=== PATIENT | female | born 1995 | race Hispanic/Latino ===

== ENCOUNTER 2017-10-29 13:52 | Inpatient (IN) | payer OTHER, SELFPAY ==
[2017-10-29] MEDS ORDERED: LR 1,000 ML IV ×6 (16:30→17:59)
[2017-10-29 16:36] LABS: HEMATOCRIT 33.4 % (36.0-47.0); HEMOGLOBIN 10.7 g/dl (12.0-15.5); MEAN CORPUSCULAR HEMOGLOBIN 25.7 pg (27.0-33.0); MEAN CORPUSCULAR VOLUME 80.1 fl (80.0-96.0); PLATELET COUNT, AUTOMATED 275 10^3/uL (150-450); RED BLOOD COUNT 4.17 10^6/uL (4.00-5.40); RED CELL DISTRIBUTION WIDTH 14.8 % (11.5-14.5); WHITE BLOOD COUNT 8.6 10^3/uL (4.0-10.0)
[2017-10-29] MEDS ORDERED: FENTANYL 2MCG/ML ROPIVACAINE 0.2% IN 0.9% NACL 200ML IVBAG As Ordered ×3 (17:35)
[2017-10-29] MEDS ORDERED: ONDANSETRON 4MG/2ML VIAL (J2405) IV ×3 (18:30)
[2017-10-29] MEDS ORDERED: ePHEDrine SULFATE 25 MG/5 ML(5MG/ML) SYRINGE IV ×3 (18:30)
[2017-10-29] MEDS ORDERED: REFRIGERATOR IV KEYS XX ×3 (18:30)
[2017-10-29] MEDS ORDERED: diphenhydrAMINE INJ 50MG/ML VIAL (J1200) IV ×3 (18:30)
[2017-10-29] MEDS ORDERED: LACTATED RINGER'S 1000 ML IV ×3 (18:30)
[2017-10-29] MEDS ORDERED: FENTANYL/ROPIVACAINE/NACL BAG 200 ML EPIDURAL ×3 (18:30)
[2017-10-29] MEDS ORDERED: NALOXONE INJ 0.4 MG/1 ML VIAL (J2310) IV ×3 (18:30)
[2017-10-29] MEDS ORDERED: EPIDURAL/PCA KEYS XX ×3 (18:30)
[2017-10-29] MEDS ORDERED: EPIDURAL COMMENT XX ×3 (18:30)
[2017-10-29 19:22] LABS: APPEARANCE, URINE HAZY (CLEAR); BACTERIA, URINE AUTO NEGATIVE (NEGATIVE); BILIRUBIN, URINE AUTO NEGATIVE (NEGATIVE); BLOOD, URINE BLOOD 2+ (NEGATIVE); COLOR, URINE YELLOW (YELLOW); GLUCOSE, URINE (UA) AUTO NEGATIVE (NEGATIVE); KETONE, URINE AUTO NEGATIVE (NEGATIVE); LEUKOCYTE ESTERASE, URINE AUTO TRACE (NEGATIVE); NITRITE, URINE AUTO NEGATIVE (NEGATIVE); PROTEIN, URINE AUTO NEGATIVE (NEGATIVE); RBC, URINE AUTO 53 /HPF (0-3); SPECIFIC GRAVITY URINE AUTO 1.011 (1.002-1.035); SQUAMOUS EPITHELIAL CELL UR AU 3 /HPF (0-6); UROBILINOGEN, URINE AUTO 0.2 mg/dL (0.0-2.0); WBC, URINE AUTO 10 /HPF (0-3)
[2017-10-29] MEDS ORDERED: OXYTOCIN 30 UNITS IN 0.9% NaCl 500ML IV BAG (J2590) As Ordered ×3 (19:52)
[2017-10-29] MEDS: OXYTOCIN DRIP 30 UNITS in APPROPRIATE DILUENT 1 EA IV ×3 (20:21)
[2017-10-29] MEDS ORDERED: DIBUCAINE 1% OINTMENT 30GM TOP ×3 (20:30)
[2017-10-29] MEDS ORDERED: METHYLERGONOVINE MALEATE 0.2 MG TAB PO ×3 (20:30)
[2017-10-29] MEDS ORDERED: MEASLES,MUMPS,RUBELLA VACCINE INJ (MMR-II) (90707) SC ×3 (20:30)
[2017-10-29] MEDS ORDERED: RHOGAM 300 MCG (1500 IU) INJ (J2790) IM ×3 (20:30)
[2017-10-29] MEDS: AMPICILLIN SOD/SULBACTAM SOD 3 GM in D5W MINI-BAG PLUS 100 ML IV ×3 (21:12)
[2017-10-29] MEDS: IBUPROFEN 800 MG TAB PO ×3 (21:50)
[2017-10-30] MEDS: ACETAMINOPHEN 500 MG TAB PO ×3 (01:34)
[2017-10-30] MEDS: PRENATAL VITAMINS CHEWABLE TABLET PO ×3 (08:49)
[2017-10-30] MEDS: DOCUSATE SODIUM 100 MG CAP PO ×3 (21:36)
[2017-10-30] MEDS: IBUPROFEN 800 MG TAB PO ×3 (21:39)
[2017-10-31] MEDS: IBUPROFEN 800 MG TAB PO ×3 (07:15)
[2017-10-31] MEDS: PRENATAL VITAMINS CHEWABLE TABLET PO ×3 (08:22)
[2017-10-31] MEDS: ADACEL/BOOSTRIX VACCINE (DIPHTH/PERTUSS/ACELL/TETANUS)0.5ML SYR (90715) IM ×3 (14:48)
== END 2017-10-31 14:50 | disposition home or self-care (01) | DRG 560 ==
LOC: M LDO 13:52 → M LDI 14:47 → M OBS 22:25
PROVIDERS: Obstetrics & Gynecology
PROC: 3E0134Z Introduction of Serum, Toxoid and Vaccine into Subcutaneous Tissue, Percutaneous Approach (ICD-10-PCS; principal; 2017-10-29)
DX: O80 Encounter for full-term uncomplicated delivery (principal); Z37.0 Single live birth; Z3A.39 39 weeks gestation of pregnancy

== ENCOUNTER 2018-06-05 16:18 | Emergency (ER) | payer OTHER ==
[~2018-06-05] VITALS: Ht 154.9 cm; Wt 54.5 kg
[~2018-06-05 16:18] MED LIST: COLA100C5 PO; IBUP-1022 PO; MAPA500T2 PO; PRENCHW PO; VALT500T PO
[2018-06-05 17:53] LABS: BASO % 0.5 % (0.0-1.0); EOS # 0.1 10^3/uL (0.0-0.50); EOS % 1.3 % (0.0-3.0); HEMATOCRIT 40.8 % (36.0-47.0); HEMOGLOBIN 13.9 g/dl (12.0-15.5); LYMPH # 4.1 10^3/uL (1.5-6.5); LYMPH % 48.6 % (24.0-44.0); MEAN CORPUSCULAR HEMOGLOBIN 28.6 pg (27.0-33.0); MEAN CORPUSCULAR HGB CONC 34.1 g/dl (32.0-36.5); MONO # 0.7 10^3/uL (0.0-0.8); MONO % 7.8 % (0.0-5.0); NEUTROPHILS # 3.5 10^3/uL (1.8-7.7); NEUTROPHILS % 41.6 % (36.0-66.0); PLATELET COUNT, AUTOMATED 326 10^3/uL (150-450); RED BLOOD COUNT 4.86 10^6/uL (4.00-5.40); WHITE BLOOD COUNT 8.4 10^3/uL (4.0-10.0)
[2018-06-05 17:58] LABS: INR 0.98; PROTHROMBIN TIME 13.1 SECONDS (12.1-14.4)
[2018-06-05 18:15] LABS: HCG, SERUM QUALITATIVE NEGATIVE (NEGATIVE)
[2018-06-05 18:20] LABS: BLOOD UREA NITROGEN 10 MG/DL (7-18); CALCIUM LEVEL 9.3 MG/DL (8.5-10.1); CARBON DIOXIDE LEVEL 28 MEQ/L (21-32); CHLORIDE LEVEL 103 MEQ/L (98-107); CREATININE FOR GFR 0.58 MG/DL (0.55-1.30); GLOMERULAR FILTRATION RATE > 60.0 (>60); GLUCOSE, FASTING 86 MG/DL (70-100); SODIUM LEVEL 138 MEQ/L (136-145)
[2018-06-05 18:25] LABS: PARTIAL THROMBOPLASTIN TIME 30.6 SECONDS (25.4-37.6)
[2018-06-05 19:48] VITALS: BP 104/64
--- NOTE | 2018-06-05 21:01 | REP ---
PELVIC ULTRASOUND: Real-time sonographic evaluation of the pelvis performed utilizing transabdominal and endovaginal technique. The bladder measures 2.6 x 1.2 x 5.2 cm. The uterus measures 7.5 x 3.7 x 5.0 cm. Endometrial thickness is 3 mm. A small amount of echogenic fluid is seen in the endometrial canal. The right ovary measures 2.4 x 2.4 x 3.3 cm and left ovary 2.3 x 2.8 x 1.7 cm. There is a dominant follicle in the right ovary 1.4 cm in diameter. There is no torsion. There is no other evidence of adnexal mass or free fluid. IMPRESSION: Small amount of complex fluid in the endometrial canal. Dominant follicle right ovary. No other evidence of mass, torsion or free fluid. Electronically Signed by Sancho Stephens MD 06/06/2018 06:42 P
== END 2018-06-05 19:52 | disposition home or self-care (01) ==
LOC: M ED 16:18
DX: N93.9 Abnormal uterine and vaginal bleeding, unspecified (principal); F41.9 Anxiety disorder, unspecified